=== PATIENT | male | born 1985 | race Caucasian/White ===

== ENCOUNTER 2018-05-26 05:59 | Day surgery (SDC) | payer OTHER ==
[2018-05-26] MEDS ORDERED: cefTRIAXone 2 GM VIAL ONE (06:19)
[2018-05-26] MEDS ORDERED: LACTATED RINGERS 1,000 ML IV ONE ×2 (06:38→10:56)
[2018-05-26] MEDS ORDERED: EPINEPHrine 1 MG/ML AMP ONE (07:13)
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
[2018-05-26] MEDS ORDERED: BUPIVACAINE 0.25% PF 10 ML VIAL ONE (07:21)
[2018-05-26] MEDS ORDERED: ePHEDrine 50 MG/ML VIAL IVP ONE (08:29)
[2018-05-26] MEDS ORDERED: PROPOFOL 200 MG/20 ML VIAL IVP ONE (08:29)
[2018-05-26] MEDS ORDERED: fentaNYL 250 MCG/5 ML VIAL IVP ONE (08:29)
[2018-05-26] MEDS ORDERED: PHENYLEPHRINE 50 MG/5 ML VIAL IV ONE (08:29)
[2018-05-26] MEDS ORDERED: ACETAMINOPHEN 1,000 MG/100 ML 100 ML IV ONE (08:29)
[2018-05-26] MEDS ORDERED: DEXAMETHASONE 4 MG/ML VIAL IVP ONE (08:29)
[2018-05-26] MEDS ORDERED: KETOROLAC 30 MG/ML VIAL IVP ONE (08:29)
[2018-05-26] MEDS ORDERED: ROPIVACAINE 0.5% PF 20 ML AMPULE EP ONE ×2 (08:29)
[2018-05-26] MEDS ORDERED: MIDAZOLAM 2 MG/2 ML VIAL IVP ONE (08:29)
[2018-05-26] MEDS ORDERED: LIDOCAINE-MPF 2% 5 ML VIAL IM ONE (08:29)
[2018-05-26] MEDS ORDERED: ONDANSETRON 4 MG/2 ML VIAL IVP ONE (08:29)
[2018-05-26] MEDS ORDERED: EPINEPHrine 1 MG/ML AMP IR ONE (08:50)
[2018-05-26] MEDS ORDERED: BUPIVACAINE 0.25% PF 30 ML VIAL SUBQ ONE (10:58)
[2018-05-26] MEDS ORDERED: oxyCODONE 5 MG TABLET PO PRN (11:40)
[2018-05-26] MEDS ORDERED: ONDANSETRON 4 MG/2 ML VIAL IVP PRN (11:40)
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
[2018-05-26] MEDS ORDERED: oxyCODONE 5 MG TABLET ONE (12:18)
[2018-05-26 12:57] VITALS: BP 126/86
== END 2018-05-26 06:00 | disposition home or self-care (01) ==
LOC: SDS 05:59
PROVIDERS: ATTEND Orthopaedic Surgery
PROC: 0RBK4ZZ Excision of Left Shoulder Joint, Percutaneous Endoscopic Approach (ICD-10-PCS; 2018-05-26)
PROC: 0RQK4ZZ Repair Left Shoulder Joint, Percutaneous Endoscopic Approach (ICD-10-PCS; 2018-05-26)
PROC: 0LS24ZZ Reposition Left Shoulder Tendon, Percutaneous Endoscopic Approach (ICD-10-PCS; principal; 2018-05-26 07:30)
DX: S43.432A Superior glenoid labrum lesion of left shoulder, initial encounter (principal); M25.312 Other instability, left shoulder; S43.492A Other sprain of left shoulder joint, initial encounter; K21.9 Gastro-esophageal reflux disease without esophagitis
CPT/HCPCS: 29822; 29828; 29999; A9270; C1713; J7120